=== PATIENT | male | born 1975 | race Caucasian/White ===

== ENCOUNTER 2019-04-04 20:57 | Emergency (ER) | payer BC ==
[2019-04-04] MEDS ORDERED: Adacel (T-DAP) 0.5 ML SYRINGE ONE (21:08)
[2019-04-04] MEDS ORDERED: Lidocaine 2% PF 5 ML VIAL ONE (21:26)
[2019-04-04] MEDS ORDERED: Bacitracin 1 PK ONE (21:44)
--- NOTE | 2019-04-04 21:53 | RAD ---
LEFT FIFTH FINGER: Date: 04-04-19 FINDINGS: A fracture is present through the terminal tuft of the distal phalanx of the fifth digit. There is no significant displacement. The remainder of the finger appears intact. IMPRESSION: Distal phalanx fracture at the terminal tuft. POS: HOME
== END 2019-04-04 22:15 | disposition home or self-care (01) ==
LOC: BURERS 20:57
DX: S62.637A Displaced fracture of distal phalanx of left little finger, initial encounter for closed fracture (principal); S61.317A Laceration without foreign body of left little finger with damage to nail, initial encounter; F17.220 Nicotine dependence, chewing tobacco, uncomplicated; Z23 Encounter for immunization; W31.89XA Contact with other specified machinery, initial encounter
CPT/HCPCS: 11750; 90471; 90715; J2001